=== PATIENT | male | born 2005 | race Asian ===

== ENCOUNTER 2025-01-24 11:11 | Emergency (ER) | payer BC ==
[2025-01-24 12:09] LABS: BASOPHILS ABSOLUTE AUTO 0.0 x10-3/uL (0.0-0.3); BASOPHILS PERCENT AUTO 0.5 % (0.3-3.8); EOSINOPHILS ABSOLUTE AUTO 0.0 x10-3/uL (0.0-0.6); EOSINOPHILS PERCENT AUTO 0.5 % (0.1-6.8); LYMPHOCYTES ABSOLUTE AUTO 1.5 x10-3/uL (0.5-4.5); LYMPHOCYTES PERCENT AUTO 19.4 % (15.8-45.3); MEAN PLATELET VOLUME 8.1 fL (6.7-11.0); MONOCYTES ABSOLUTE AUTO 0.5 x10-3/uL (0.0-1.2); MONOCYTES PERCENT AUTO 6.1 % (5.5-15.2); NEUTROPHILS ABSOLUTE AUTO 5.5 x10-3/uL (1.7-6.9); NEUTROPHILS PERCENT AUTO 73.5 % (40.3-71.8); PLATELET COUNT,PLT 295 x10(3)uL (117-477); RED BLOOD CELL COUNT 5.55 x10(6)uL (3.90-5.90); RED CELL DISTRIBUTION WIDTH 12.8 % (12.4-15.0); WHITE BLOOD CELL COUNT,WBC 7.5 x10-3/uL (3.2-10.1)
[2025-01-24 12:16] LABS: BLOOD UREA NITROGEN,BUN 11 mg/dL (7-18); CARBON DIOXIDE,CO2 30 mmol/L (21-32); CHLORIDE,CL 100 mmol/L (100-110); CREATININE 1.2 mg/dL (0.70-1.30); ESTIMATED GFR 89 mL/min (>60); GLUCOSE RANDOM 94 mg/dL (80-116); POTASSIUM,K 3.9 mmol/L (3.5-5.3); SODIUM,NA 138 mmol/L (135-145)
[2025-01-24 12:31] LABS: BASE EXCESS VENOUS,POC -2 mmol/L (-2 - 3+); PCO2 VENOUS,POC 46 mmHg (41-51); PH VENOUS,POC 7.33 pH Units (7.32-7.43)
== END 2025-01-24 15:45 | disposition home or self-care (01) ==
LOC: FB.ED 11:11
DX: R06.02 Shortness of breath (principal); R79.89 Other specified abnormal findings of blood chemistry
CPT/HCPCS: 36415; 80048; 83880; 84484; 85025; 85379; 85651; 86140; 93005; 99285